=== PATIENT | male | born 1940 | race Caucasian/White ===

== ENCOUNTER → 2017-08-05 | Outpatient (CLI) | payer MEDICARE, OTHER ==
[~2017-08-05] MED LIST: ASPI81EC PO; ATEN50 PO; ATOR10 PO; ATOR40TA PO; BENICAR PO; BP MED; CEPH500 PO; CHOL10002 PO; COLE1 PO; CYAN1000 PO; CYCL10 PO; Coq-1030 MG PO; DOXA4 PO; FIBER GUMMIES1 EACH PO; FISH1000 PO; GLUCHON PO; HYDACE5 PO; LEVOXYL PO; LEVSOD175 PO; LIPITOR; MECL25 PO; METPRE4DP PO; NAPR500 PO; NEBI10 PO; OLME20 PO; STOOL SOFTENER 100MG PO; STOOL SOFTENER PO; SYNTHROID; TAMS.4ER PO; UBID100 PO; UNISOM25 MG PO
[2017-08-05 17:19] LABS: Alanine Aminotransfer (ALT/SGP 23 U/L (12-78); Albumin, Blood 3.6 g/dL (3.4-5.0); Albumin/Globulin Ratio 1.3 (0.8-1.8); Alk Phos 82 U/L (50-136); Anion Gap 9 mmol/L (6-16); Aspartate Aminotrans (AST/SGOT 18 U/L (12-37); Bilirubin, Total 0.7 mg/dL (0.1-1.0); Blood Urea Nitrogen 14 mg/dL (8-24); Bun/Creatinine Ratio 13.5 (12.0-20.0); CO2, Blood 27 mmol/L (21-32); Calcium, Blood 8.7 mg/dL (8.5-10.1); Chloride, Blood 107 mmol/L (98-108); Creatinine, Blood 1.04 mg/dL (0.60-1.20); Free Thyroxine 1.46 ng/dL (0.70-1.60); Globulin, Blood 2.8 g/dL (2.2-4.0); Glomerular Filtration Rate >60 (60-); Glucose, Blood 72 mg/dL (70-99); Potassium, Blood 4.5 mmol/L (3.5-5.5); Sodium, Blood 143 mmol/L (136-145); Thyroid Stimulating Hormone 0.114 uIU/mL (0.360-4.800); Total Protein, Blood 6.4 g/dL (6.4-8.2)
== END ==
LOC: LAB 16:28
PROVIDERS: Internal Medicine Hematology & Oncology
DX: C18.7 Malignant neoplasm of sigmoid colon (principal); E03.9 Hypothyroidism, unspecified
CPT/HCPCS: 80053; 84439; 84443

== ENCOUNTER 2017-09-12 22:12 | Emergency (ER) | payer MEDICARE, OTHER ==
[~2017-09-12] VITALS: Ht 170.2 cm; Wt 81.7 kg
[~2017-09-12 22:12] MED LIST changes: -ATOR40TA PO; -Coq-1030 MG PO
[2017-09-12] MEDS ORDERED: ATOR40TA PO (22:25)
[2017-09-12] MEDS ORDERED: Coq-1030 MG PO (22:26)
[2017-09-12] MEDS ORDERED: DOXA4 PO (22:28)
[2017-09-12 23:36] LABS: BASOPHILS ABSOLUTE AUTO 0.03 K/mm3 (0.00-0.23); BASOPHILS PERCENT AUTO 0 % (0-2); EOSINOPHILS ABSOLUTE AUTO 0.25 K/mm3 (0.00-0.68); EOSINOPHILS PERCENT AUTO 4 % (0-6); Hematocrit 42.4 % (37.0-53.0); Hemoglobin 14.2 g/dL (13.5-17.5); IMMATURE GRAN ABSOLUTE AUTO 0.01 K/mm3 (0.00-0.10); IMMATURE GRAN PERCENT AUTO 0 % (0-1); LYMPHOCYTES ABSOLUTE AUTO 1.23 K/mm3 (0.84-5.20); LYMPHOCYTES PERCENT AUTO 18 % (21-46); MONOCYTES ABSOLUTE AUTO 0.43 K/mm3 (0.16-1.47); MONOCYTES PERCENT AUTO 6 % (4-13); Mean Corpuscular HGB Conc 33.5 g/dL (31.5-36.5); Mean Corpuscular Volume 90 fL (80-100); Mean Platelet Volume 10.1 fL (9.1-12.4); NEUTROPHILS ABSOLUTE AUTO 5.01 K/mm3 (1.96-9.15); NEUTROPHILS PERCENT AUTO 72 % (41-73); Platelet Count 185 K/mm3 (150-400); RDW Coefficient Variation 12.7 % (11.7-14.2); RDW Standard Deviation 42.3 fL (35.1-46.3); Red Blood Cell Count 4.73 M/mm3 (4.30-5.90); White Blood Cell Count 6.96 K/mm3 (4.00-11.30)
[2017-09-12 23:55] LABS: Alanine Aminotransfer (ALT/SGP 29 U/L (12-78); Albumin, Blood 3.4 g/dL (3.4-5.0); Albumin/Globulin Ratio 1.1 (0.8-1.8); Alk Phos 106 U/L (50-136); Anion Gap 7 mmol/L (6-16); Aspartate Aminotrans (AST/SGOT 25 U/L (12-37); Bilirubin, Total 0.5 mg/dL (0.1-1.0); Blood Urea Nitrogen 11 mg/dL (8-24); Bun/Creatinine Ratio 10.5 (12.0-20.0); CO2, Blood 26 mmol/L (21-32); Calcium, Blood 8.2 mg/dL (8.5-10.1); Chloride, Blood 108 mmol/L (98-108); Creatinine, Blood 1.05 mg/dL (0.60-1.20); Globulin, Blood 3.1 g/dL (2.2-4.0); Glomerular Filtration Rate >60 (60-); Glucose, Blood 95 mg/dL (70-99); Potassium, Blood 3.6 mmol/L (3.5-5.5); Sodium, Blood 141 mmol/L (136-145); Total Protein, Blood 6.5 g/dL (6.4-8.2); Troponin I <0.015 ng/mL (0.000-0.040)
== END 2017-09-13 00:40 | disposition home or self-care (01) ==
LOC: ER 22:12
PROVIDERS: Emergency Medicine
DX: I10 Essential (primary) hypertension (principal); E78.5 Hyperlipidemia, unspecified; E03.9 Hypothyroidism, unspecified; Z88.5 Allergy status to narcotic agent; Z91.011 Allergy to milk products; Z79.899 Other long term (current) drug therapy; Z79.82 Long term (current) use of aspirin
CPT/HCPCS: 80053; 84484; 85025; 93005; 93010; 96374; 99284; J1885

== ENCOUNTER → 2017-11-08 | Outpatient (CLI) | payer MEDICARE, OTHER ==
[~2017-11-08] MED LIST changes: +ATOR40TA PO; +Coq-1030 MG PO
== END | disposition home or self-care (01) ==
LOC: PLD 09:48 → LAB SHORT 09:48
DX: D22.4 Melanocytic nevi of scalp and neck (principal)
CPT/HCPCS: 88305

== ENCOUNTER → 2018-08-18 | Outpatient (CLI) | payer MEDICARE, OTHER | END | disposition home or self-care (01) | LOC: PLD 09:52 → LAB SHORT 09:52 | DX: D48.5 Neoplasm of uncertain behavior of skin (principal) | CPT/HCPCS: 88305 ==

== ENCOUNTER 2019-02-24 07:42 | Day surgery (SDC) | payer MEDICARE, OTHER ==
[~2019-02-24] VITALS: Ht 172.7 cm; Wt 87.1 kg
[~2019-02-24 07:42] MED LIST changes: +Atenolol50 MG PO; +LEVO-T150 MCG PO; +LOSA50 PO
--- NOTE | 2019-02-24 08:26 | NUR ---
02/24/19 0826 Bridgett Preciado FIRST IV ATTEMPT IN RIGHT HAND INFILTRATED. SECOND ATTEMPT IN RIGHT FOREARM WAS SUCCESSFUL AND TOLERATED WELL. BOTH BY [email or web address]
--- NOTE | 2019-02-24 09:38 | NUR ---
02/24/19 0938 Char Woodard 7ML NACL WITH INDIGO CARMINE USED FOR POLYP REMOVAL.
== END 2019-02-24 10:08 | disposition home or self-care (01) ==
LOC: ORSCSDS 07:42
PROVIDERS: Internal Medicine Gastroenterology
PROC: 3E0H8GC Introduction of Other Therapeutic Substance into Lower GI, Via Natural or Artificial Opening Endoscopic (ICD-10-PCS; principal; 2019-02-24 09:00)
PROC: 0DBC8ZX Excision of Ileocecal Valve, Via Natural or Artificial Opening Endoscopic, Diagnostic (ICD-10-PCS; principal; 2019-02-24 09:00)
PROC: 0DBK8ZX Excision of Ascending Colon, Via Natural or Artificial Opening Endoscopic, Diagnostic (ICD-10-PCS; principal; 2019-02-24 09:00)
DX: Z12.11 Encounter for screening for malignant neoplasm of colon (principal); D12.0 Benign neoplasm of cecum; D12.2 Benign neoplasm of ascending colon; K57.30 Diverticulosis of large intestine without perforation or abscess without bleeding; K64.8 Other hemorrhoids; Z86.010 Personal history of colon polyps; Z85.038 Personal history of other malignant neoplasm of large intestine; I10 Essential (primary) hypertension; Z79.899 Other long term (current) drug therapy
CPT/HCPCS: 88305; J2704; J7120

== ENCOUNTER → 2019-08-14 | Outpatient (CLI) | payer MEDICARE ==
[2019-08-14 12:41] LABS: PSA, %Free 24.4 %; PSA, Free 0.908 ng/mL
== END ==
LOC: LAB 11:12 → LAB SHORT 11:12
PROVIDERS: Internal Medicine Hematology & Oncology
DX: Z12.5 Encounter for screening for malignant neoplasm of prostate (principal); R97.20 Elevated prostate specific antigen [PSA]
CPT/HCPCS: 84153; 84154

== ENCOUNTER → 2019-11-20 | Outpatient (CLI) | payer MEDICARE, OTHER | END | disposition home or self-care (01) | LOC: LAB SHORT 12:04 → LAB 12:04 | DX: D48.5 Neoplasm of uncertain behavior of skin (principal) | CPT/HCPCS: 88305; 88312 ==

== ENCOUNTER 2021-10-15 07:53 | Observation (INO) | payer MEDICARE, OTHER ==
[~2021-10-15] VITALS: Ht 172.7 cm; Wt 92.8 kg
[~2021-10-15 07:53] MED LIST changes: +ADCIRCA20 MG PO; +ASPI81CH PO; -ASPI81EC PO; +CATAPRES0.1 MG PO; -CHOL10002 PO; -CYAN1000 PO; +FINA5 PO; +FISH OIL 1,2001 EAC7 PO; -FISH1000 PO; +FURO20 PO; +POTA10T PO; +VITAMIN D310 MC5 PO; +Vitamin B-12100 MCG PO
--- NOTE | 2021-10-15 12:00 | NUR ---
PT ARRIVED FROM [facility], PT WAS SLEEPY BUT ORIENTED. PT'S SPOUSE AT BEDSIDE. VSS, ON ROOM AIR. TR BAND IN PLACE, NO HEMATOMA AND SCANT DRAINAGE NOTED. ARMBOARD IN PLACE. NO SIGNS OF ACUTE DISTRESS, WCTM.
--- NOTE | 2021-10-15 17:51 | NUR ---
NO ACUTE EVENTS SINCE ARRIVAL TO UNIT. VSS, ON ROOM AIR. ALERT AND ORIENTED. TR BAND RECOVERED AND TEGADERM IN PLACE. NO HEMATOMA OR DISCHARGE NOTED. ARMBOARD IN PLACE, PT EDUCATED ON MOVEMENT RESTRICTIONS FOR POST ANGIO RADIAL SITE. WCTM.
--- NOTE | 2021-10-15 21:57 | NUR ---
Assumed care 1900. VSS on RA. BP elevated, scheduled meds given. Tele: SB 50-60s. Right radial site looks good, no hematoma. Will continue to monitor.
[2021-10-16 03:46] LABS: Hematocrit 41.2 % (37.0-53.0); Hemoglobin 13.7 g/dL (13.5-17.5); Mean Corpuscular HGB 29.9 pg (26.0-34.0); Mean Corpuscular HGB Conc 33.3 g/dL (31.5-36.5); Mean Corpuscular Volume 90 fL (80-100); Mean Platelet Volume 9.9 fL (9.1-12.4); Platelet Count 168 K/mm3 (150-400); RDW Coefficient Variation 12.7 % (11.7-14.2); RDW Standard Deviation 41.9 fL (35.1-46.3); Red Blood Cell Count 4.58 M/mm3 (4.30-5.90); White Blood Cell Count 6.49 K/mm3 (4.00-11.30)
[2021-10-16 04:04] LABS: Bun/Creatinine Ratio 11.5 (12.0-20.0); Calcium, Blood 8.2 mg/dL (8.5-10.1); Creatinine, Blood 1.13 mg/dL (0.60-1.20); Potassium, Blood 3.9 mmol/L (3.5-5.5)
--- NOTE | 2021-10-16 04:48 | NUR ---
Research Dietitian Note: Pt is A&O, pleasant with cares. VSS on RA. BP was elevated, but improved with scheduled meds. Pt had trouble sleeping, prn melatonin given per orders. IV fluids d/c per orders. 0500 EKG was completed. Right radial site was clean, dry and intact, no hematoma present. Pt up independently in room. Tele: SB 50-60s.
[2021-10-16] MEDS ORDERED: ATEN25 PO (09:54)
[2021-10-16] MEDS ORDERED: ATOR40TA PO (09:55)
[2021-10-16] MEDS ORDERED: CATAPRES0.1 MG PO (09:56)
[2021-10-16] MEDS ORDERED: LOSA50 PO (10:00)
[2021-10-16] MEDS ORDERED: CLOP75 PO (10:04)
--- NOTE | 2021-10-16 11:05 | NUR ---
DISCHARGE NOTE NO ACUTE EVENTS THIS SHIFT, VSS. PT ALERT AND ORIENTED, INDEPENDENT IN ROOM. NO DISCHARGE/HEMATOMA AT R. RADIAL ANGIO ACCESS SITE, ARMBOARD IN PLACE. PT AND PT'S SPOUSE PROVIDED DISCHARGE INFO REGARDING FOLLOW UP PLANS, POST ANGIO RADIAL SITE CARE AND MOVEMENT RESTRICTIONS, AND MEDICATION INFORMATION. PT AND PT'S SPOUSE VERBALIZED UNDERSTANDING. LEFT WITH DISCHARGE INFO PAPERWORK AND STENT CARDS. LEFT VIA AMBULATION ACCOMPANIED BY STAFF WITH SPOUSE TO PROVIDE TRANSPORT.
== END 2021-10-16 10:37 | disposition home or self-care (01) ==
LOC: MHTC 07:53 → PCU 11:34 → MHTC 11:57 → PCU 11:58 → MHTC 11:58 → PCU 12:00
PROVIDERS: ADMIT Internal Medicine Cardiovascular Disease
DX: I25.118 Atherosclerotic heart disease of native coronary artery with other forms of angina pectoris (principal); I13.10 Hypertensive heart and chronic kidney disease without heart failure, with stage 1 through stage 4 chronic kidney disease, or unspecified chronic kidney disease; N18.2 Chronic kidney disease, stage 2 (mild); I35.0 Nonrheumatic aortic (valve) stenosis; E78.2 Mixed hyperlipidemia; R00.0 Tachycardia, unspecified; I77.810 Thoracic aortic ectasia; D63.1 Anemia in chronic kidney disease; E21.3 Hyperparathyroidism, unspecified; E03.9 Hypothyroidism, unspecified; Z79.82 Long term (current) use of aspirin; Z88.5 Allergy status to narcotic agent; Z88.8 Allergy status to other drugs, medicaments and biological substances; Z87.891 Personal history of nicotine dependence
CPT/HCPCS: 36415; 80048; 85027; 85347; 93005; 93010; 93454; 93571; 99152; 99153; A9270; C1725; C1769; C1874; C1887; C1894; C9600; C9601; G0378; J1644; J2250; J3010; J7030; J7040; Q9967

== ENCOUNTER 2022-02-06 08:22 | Emergency (ER) | payer MEDICARE, OTHER ==
[~2022-02-06] VITALS: Ht 170.2 cm; Wt 86.2 kg
[~2022-02-06 08:22] MED LIST changes: +ATEN25 PO; +CLOP75 PO
== END 2022-02-06 09:32 | disposition home or self-care (01) ==
LOC: ER 08:22
DX: R04.0 Epistaxis (principal); E03.9 Hypothyroidism, unspecified; I10 Essential (primary) hypertension; E78.5 Hyperlipidemia, unspecified; Z88.5 Allergy status to narcotic agent; Z91.011 Allergy to milk products; Z79.899 Other long term (current) drug therapy; Z79.82 Long term (current) use of aspirin; Z79.890 Hormone replacement therapy
CPT/HCPCS: 99283

== ENCOUNTER → 2023-01-19 | Outpatient (CLI) | payer OTHER ==
[~2023-01-19] MED LIST changes: +B-121000 MC6 SL; +COQ-10100 MG PO
== END ==
LOC: LAB SHORT 09:39 → LAB 09:39
DX: B35.1 Tinea unguium (principal)
CPT/HCPCS: 87102

== ENCOUNTER 2023-01-28 06:25 | Day surgery (SDC) | payer OTHER ==
[~2023-01-28] VITALS: Ht 170.2 cm; Wt 84.6 kg
[2023-01-28 08:42] VITALS: BP 118/70
== END 2023-01-28 08:53 | disposition home or self-care (01) ==
LOC: ORSCSDS 06:25
PROVIDERS: Internal Medicine Gastroenterology
PROC: 0DBM8ZX Excision of Descending Colon, Via Natural or Artificial Opening Endoscopic, Diagnostic (ICD-10-PCS; principal; 2023-01-28 08:00)
DX: Z12.11 Encounter for screening for malignant neoplasm of colon (principal); Z85.038 Personal history of other malignant neoplasm of large intestine; Z86.010 Personal history of colon polyps; D12.4 Benign neoplasm of descending colon; K57.30 Diverticulosis of large intestine without perforation or abscess without bleeding; K64.8 Other hemorrhoids; I12.9 Hypertensive chronic kidney disease with stage 1 through stage 4 chronic kidney disease, or unspecified chronic kidney disease; N18.9 Chronic kidney disease, unspecified; I25.10 Atherosclerotic heart disease of native coronary artery without angina pectoris; E78.00 Pure hypercholesterolemia, unspecified; Z87.891 Personal history of nicotine dependence; Z79.82 Long term (current) use of aspirin; Z79.899 Other long term (current) drug therapy
CPT/HCPCS: 88305; J2704; J7120

== ENCOUNTER 2024-04-21 05:49 | Inpatient (IN) | payer OTHER ==
[2024-04-21] VITALS (18 sets, daily range): BP systolic 145–173; BP diastolic 73–98
[~2024-04-21] VITALS: Ht 170.2 cm; Wt 85.5 kg
[2024-04-21] MEDS ORDERED: Acetaminophen 500 MG Tab PO SCH ×2 (06:20→08:00)
[2024-04-21] MEDS ORDERED: Tranexamic Acid 1,000 MG in NS 100 ML IV SCH (06:20)
[2024-04-21] MEDS ORDERED: Chlorhexidine Mouth Care 15 ML UDC MT SCH (06:20)
[2024-04-21] MEDS ORDERED: Ropivacaine 0.5% HCl/Pf 123.125 MG,EPINEPHrine HCL 0.25 MG,Ketorolac Tromethamine 15 MG... INFIL SCH (06:20)
[2024-04-21] MEDS ORDERED: CeFAZolin Sodium 2,000 MG in NS 100 ML IV SCH ×2 (06:20→16:00)
[2024-04-21] MEDS ORDERED: OxyCODONE HCL 10 MG TABCR PO SCH (06:20)
[2024-04-21] MEDS ORDERED: Lactated Ringer's 1,000 ML IV SCH ×2 (06:20→07:35)
[2024-04-21] MEDS ORDERED: LOSARTAN POTAS100 M1 PO (06:28)
[2024-04-21] MEDS ORDERED: CATAPRES0.3 MG PO (06:31)
--- NOTE | 2024-04-21 06:49 | NUR ---
Ambulatory in Day Surgery History, Chart, Medications and Allergies reviewed before start of procedure.Lungs clear T/O to Auscultation.Holosystolic murmur auscultated. Patient confirms NPO status and agrees with scheduled surgery. Patient reports completing Chlorhexadine shower X2 prior to admission to hospital.Surgical site prepped with 2% Chlorhexidine cloth wipe.
[2024-04-21] MEDS ORDERED: CeFAZolin Sodium 2,000 MG VIAL ONE (06:50)
[2024-04-21] MEDS ORDERED: Midazolam HCl 1MG / ML 2ML Vial ONE (07:21)
[2024-04-21] MEDS ORDERED: FLU VACC TS2024-25(6MOS UP)/PF 45 MCG/0.5 ML SYRINGE IM SCH (07:25)
--- NOTE | 2024-04-21 07:26 | NUR ---
DR. GARCIA AT BEDSIDE. TIME OUT PERFORMED FOR LEFT INTERSCALENE NERVE BLOCK. SPO2, BP MONITORED THROUGH OUT PROCEDURE.
[2024-04-21] MEDS ORDERED: HYDROmorphone HCl/Pf 1MG SYR IV PRN (07:30)
[2024-04-21] MEDS ORDERED: DiphenhydrAMINE HCL 25 MG Cap PO PRN (07:30)
[2024-04-21] MEDS ORDERED: Bisacodyl 10 MG Supp PR PRN (07:30)
[2024-04-21] MEDS ORDERED: Prochlorperazine Edisylate 10 mg Vial IV PRN (07:30)
[2024-04-21] MEDS ORDERED: Metoclopramide HCl 5MG / ML 2ML Vial IV PRN (07:35)
[2024-04-21] MEDS ORDERED: Magnesium Hydroxide Conc 10 ML UDC PO PRN (07:35)
[2024-04-21] MEDS ORDERED: Promethazine HCl 25 MG Tab PO PRN (07:35)
[2024-04-21] MEDS ORDERED: OxyCODONE HCL 5 MG TAB PO PRN ×2 (07:35)
[2024-04-21] MEDS ORDERED: Dexamethasone Sod Phos 10 MG/ML 1ML VIAL ONE (07:39)
[2024-04-21] MEDS ORDERED: EpiNEPhrine 1 MG/1 ML 1ML Vial ONE (07:39)
[2024-04-21] MEDS ORDERED: Bupivacaine 0.5% HCl 5 MG/ML 30MLVIAL ONE (07:39)
[2024-04-21] MEDS ORDERED: Rocuronium Bromide 10 MG/ML 5ML Injection IV ONE (07:39)
[2024-04-21] MEDS ORDERED: Ondansetron HCl 2 MG / ML 2ML Vial IV PRN (07:40)
[2024-04-21] MEDS ORDERED: propofoL 20 ML IV ONE (07:40)
[2024-04-21] MEDS ORDERED: FentaNYL Citrate 50 MCG/ML 2 ML Injection ONE (07:43)
[2024-04-21] MEDS ORDERED: ePHEDrine Sulfate 50 MG/ML 1ML Injection ONE (08:05)
[2024-04-21] MEDS ORDERED: CloNIDine HCl 0.2 MG Tab PO SCH (09:00)
[2024-04-21] MEDS ORDERED: Docusate Sodium 100 MG Cap PO SCH (09:00)
[2024-04-21] MEDS ORDERED: Atenolol 25 MG Tab PO SCH (09:00)
[2024-04-21] MEDS ORDERED: Doxazosin Mesylate 8 MG TAB PO SCH (09:00)
[2024-04-21] MEDS ORDERED: Losartan Potassium 50 MG Tab PO SCH ×2 (09:00→22:10)
[2024-04-21] MEDS ORDERED: Ondansetron HCl 2 MG / ML 2ML Vial ONE (10:11)
[2024-04-21] MEDS ORDERED: Glycopyrrolate 0.2 MG/ML 5ML VIAL ONE (10:11)
[2024-04-21] MEDS ORDERED: Neostigmine Methylsulfate 5MG/5ML SYR ONE (10:11)
--- NOTE | 2024-04-21 11:45 | NUR ---
ARRIVAL TO UNIT PT ARRIVED TO UNIT VIA BED. A&0 x4. RESPONDS TO QUESTIONS APPROPRIATELY. L SHOULDER IN IMMOBILIZER, SURGICAL SITE c WOUND GLUE C/D/I. POLAR PACK IN USE. PT REPORTS SENSATION @ APPROX C6. PT ABLE TO WIGGLE FINGERS. REPORTS NO PAIN AT THIS TIME. @ BEDSIDE. ORIENTED TO UNIT, NO NEEDS STATED, CALL LIGHT IN REACH.
[2024-04-21] MEDS ORDERED: Ketorolac Tromethamine 15mg Vial IV SCH (12:00)
[2024-04-21] MEDS ORDERED: ERGO400 PO (14:04)
[2024-04-21] MEDS ORDERED: ACETAMINOPHEN500 MG PO (14:10)
[2024-04-21] MEDS ORDERED: OXAYDO5 M1 PO (14:11)
--- NOTE | 2024-04-21 19:22 | NUR ---
SHIFT SUMMARY POD 0 L REVERSE TSA. NO ACUTE CHANGES TODAY. VSS. TOLERATING ORALS. VOIDING. AMB c SBA, IMMOBILIZER IN USE. PRINEO DRESSING C/D/I c SCANT SANG DRAINAGE. CLEARED PHYSCIAL THERAPY. PT RESTING IN BED. PT REPORTS PAIN TOLERABLE, MEDICATED PER EMAR. ANTICIPATED DISCHARGE TOMORROW. CALL LIGHT IN REACH, BED IN LOWEST POSITION, REPORT GIVEN TO HOMER CROSS.
[2024-04-22 02:41] VITALS: BP 161/83
[2024-04-22 05:15] LABS: BASOPHILS ABSOLUTE AUTO 0.02 K/mm3 (0.00-0.23); BASOPHILS PERCENT AUTO 0 % (0-2); EOSINOPHILS ABSOLUTE AUTO 0.01 K/mm3 (0.00-0.68); EOSINOPHILS PERCENT AUTO 0 % (0-6); Hematocrit 38.4 % (37.0-53.0); Hemoglobin 12.9 g/dL (13.5-17.5); IMMATURE GRAN ABSOLUTE AUTO 0.04 K/mm3 (0.00-0.10); IMMATURE GRAN PERCENT AUTO 0 % (0-1); LYMPHOCYTES ABSOLUTE AUTO 0.68 K/mm3 (0.84-5.20); LYMPHOCYTES PERCENT AUTO 7 % (21-46); MONOCYTES ABSOLUTE AUTO 0.88 K/mm3 (0.16-1.47); MONOCYTES PERCENT AUTO 9 % (4-13); Mean Corpuscular HGB 30.1 pg (26.0-34.0); Mean Corpuscular HGB Conc 33.6 g/dL (31.5-36.5); Mean Corpuscular Volume 90 fL (80-100); Mean Platelet Volume 10.2 fL (9.1-12.4); NEUTROPHILS ABSOLUTE AUTO 8.69 K/mm3 (1.96-9.15); NEUTROPHILS PERCENT AUTO 84 % (41-73); Platelet Count 174 K/mm3 (150-400); RDW Coefficient Variation 12.5 % (11.7-14.2); Red Blood Cell Count 4.29 M/mm3 (4.30-5.90); White Blood Cell Count 10.32 K/mm3 (4.00-11.30)
[2024-04-22 05:51] LABS: Bun/Creatinine Ratio 14.8 (12.0-20.0); Creatinine, Blood 1.22 mg/dL (0.60-1.20); Magnesium, Blood 2.1 mg/dL (1.6-2.4)
[2024-04-22] MEDS ORDERED: Levothyroxine Sodium 0.175 MG TAB PO SCH (06:00)
--- NOTE | 2024-04-22 06:54 | NUR ---
SHIFT SUMMARY PT POD 0 LEFT THOULDER REVERSAL, SURGICAL SITE WNL. DRESSING C/D/I. PT VOIDING AND TOLERATING PO INTAKE. PT HAD A BLOCK AND IS STILL REPORTING SOME RESIDUAL NUMBNESS IN FINGERS. DENIES PAIN. HAND IS WARM TO TOUCH. POST OP VITALS STABLE. PLAN IS FOR DC TODAY.
[2024-04-22 07:18] VITALS: BP 176/86
[2024-04-22 10:21] VITALS: BP 136/71
--- NOTE | 2024-04-22 11:02 | NUR ---
DISCHARGE NOTE PT VOIDING, AMBULATING INDEPENDENTLY, IMMOBILIZER IN PLACE, ABRIL HOSE ON. VSS. PT GIVEN MORNING MEDS, REVIEWED WHAT MEDS WERE GIVEN W/ PT. PT STATES HE HAS PAIN PRESCRIPTION ALREADY FILLED AT HOME. DC INSTRUCTIONS REVIEWED W/ PT, COPY SENT HOME W/ PT. PT REPORTING NO PAIN AT THIS TIME, SOME RESIDUAL NUMBNESS IN L THUMB AND POINTER FINGER BUT IS ABLE TO WIGGLE FINGERS, CAP REFILL 2 SECS. PT SENT HOME W/ AQUACEL DRESSING. DC'D TO PRIVATE RIDE HOME W/ BELONGINGS, PT REFUSED WHEELCHAIR.
== END 2024-04-22 10:48 | disposition home or self-care (01) | DRG 483 ==
LOC: ORSCMMR 05:49 → SURS 07:29 → ORD 07:30 → ORSCMMR 07:30 → SURS 11:30
PROVIDERS: ADMIT Orthopaedic Surgery
PROC: 0RRK00Z Replacement of Left Shoulder Joint with Reverse Ball and Socket Synthetic Substitute, Open Approach (ICD-10-PCS; principal; 2024-04-21 07:30)
DX: M19.012 Primary osteoarthritis, left shoulder (principal); M75.122 Complete rotator cuff tear or rupture of left shoulder, not specified as traumatic; D64.9 Anemia, unspecified; M19.90 Unspecified osteoarthritis, unspecified site; Z85.038 Personal history of other malignant neoplasm of large intestine; N18.9 Chronic kidney disease, unspecified; I12.9 Hypertensive chronic kidney disease with stage 1 through stage 4 chronic kidney disease, or unspecified chronic kidney disease; E78.00 Pure hypercholesterolemia, unspecified; E21.3 Hyperparathyroidism, unspecified; Z96.1 Presence of intraocular lens; Z98.42 Cataract extraction status, left eye; Z98.41 Cataract extraction status, right eye; Z98.1 Arthrodesis status; Z96.643 Presence of artificial hip joint, bilateral; Z87.891 Personal history of nicotine dependence; Z79.82 Long term (current) use of aspirin; Z79.899 Other long term (current) drug therapy; Z79.02 Long term (current) use of antithrombotics/antiplatelets; Z79.890 Hormone replacement therapy; Z88.8 Allergy status to other drugs, medicaments and biological substances
CPT/HCPCS: 36415; 73030; 80048; 83735; 85025; 97110; 97116; 97162; 97530; A9270; J0171; J0690; J0735; J1100; J1885; J2250; J2405; J2704; J2710; J2795; J3010; J7120